=== PATIENT | male | born 1975 | race Caucasian/White ===

== ENCOUNTER 2023-03-23 06:39 | Day surgery (SDC) | payer OTHER ==
[~2023-03-23] VITALS: Ht 182.9 cm; Wt 110.9 kg
[~2023-03-23 06:39] MED LIST: BAYE81TA10 PO; BENA10TA PO; CHLO25TA PO; FENO145T7 PO; LIPI80TA PO; METF500T13 PO; NORV5TAB PO; NS 1,000 ML IV ONE; VITMTA PO
[2023-03-23] MEDS ORDERED: propofoL 200 MG/20 ML VIAL As Ordered ONE ×2 (07:03→08:47)
[2023-03-23] MEDS ORDERED: LIDOCAINE 2% 100MG/5ML SDV (FOR ANES.) As Ordered ONE (07:03)
[2023-03-23] MEDS ORDERED: METF-839 PO (07:04)
[2023-03-23 09:19] VITALS: BP 134/78; O2SAT 95
[2023-03-24] MEDS ORDERED: METF-723 PO (06:28)
[2023-03-24] MEDS ORDERED: SELS1SHA7 EXT (06:28)
[2023-03-24] MEDS ORDERED: AMLO1TAB25 PO (06:28)
[2023-03-24] MEDS ORDERED: FLUO1SOL TOP (06:28)
== END 2023-03-23 09:19 | disposition home or self-care (01) ==
LOC: M OPP 06:39
PROVIDERS: ATTEND Internal Medicine Gastroenterology
DX: Z12.11 Encounter for screening for malignant neoplasm of colon (principal); D37.4 Neoplasm of uncertain behavior of colon; K64.0 First degree hemorrhoids; E11.9 Type 2 diabetes mellitus without complications; G47.30 Sleep apnea, unspecified; Z87.891 Personal history of nicotine dependence; Z79.02 Long term (current) use of antithrombotics/antiplatelets; Z79.82 Long term (current) use of aspirin; Z79.84 Long term (current) use of oral hypoglycemic drugs; Z79.899 Other long term (current) drug therapy